=== PATIENT | male | born 1975 | race Caucasian/White ===

== ENCOUNTER 2019-01-23 14:04 | Inpatient (IN) ==
[2019-01-23] MEDS ORDERED: PERCOCET TAB 5/325 MG PO PRN (14:55)
[2019-01-23] MEDS ORDERED: VANCOMYCIN HCL 1 G in D5W 250 ML IV 250 ML IV SCH (15:00)
[2019-01-23] MEDS ORDERED: NS 500 ML IV 500 ML ONE (15:17)
[2019-01-23] MEDS: NICOTINE PATCH TD SCH (15:24)
[2019-01-23 15:25] LABS: BASOPHILS # (AUTO) 0.1 X10^3/uL (0.0-0.1); EOSINOPHILS # (AUTO) 0.5 x10^3/uL (0.0-0.2); EOSINOPHILS % (AUTO) 6.1 % (0.9-2.9); HEMATOCRIT 34.7 % (42.0-54.0); HEMOGLOBIN 10.8 g/dL (13.5-18.0); LYMPHOCYTES # (AUTO) 1.7 X10^3/uL (1.3-2.9); LYMPHOCYTES % (AUTO) 20.5 % (21.0-51.0); MEAN CORPUSCULAR HEMOGLOBIN 21.1 pg (27.0-34.0); MEAN CORPUSCULAR HGB CONC 31.3 g/dL (33.0-35.0); MEAN CORPUSCULAR VOLUME 67.5 fL (80.0-100.0); MEAN PLATELET VOLUME 8.1 fL (7.4-11.0); MONOCYTES # (AUTO) 0.7 x10^3/uL (0.3-0.8); MONOCYTES % (AUTO) 8.5 % (0.0-13.0); NEUTROPHILS # (AUTO) 5.3 x10^3/uL (2.2-4.8); NEUTROPHILS % (AUTO) 63.9 % (42.0-75.0); PLATELET COUNT 307 X10^3/uL (150.0-450.0); RED BLOOD COUNT 5.14 X10^6/uL (4.7-6.0); WHITE BLOOD COUNT 8.2 X10^3/uL (3.6-10.0)
[2019-01-23] MEDS: VANCOMYCIN HCL 1 G in D5W 250 ML IV 250 ML IV SCH ×2 (15:25→22:07)
[2019-01-23 15:36] LABS: ALANINE AMINOTRANSFERASE 20 Units/L (12-78); ALBUMIN 3.8 g/dL (3.4-5.0); ALKALINE PHOSPHATASE 90 Units/L (46-116); ASPARTATE AMINO TRANSFERASE 12 Units/L (15-37); BLOOD UREA NITROGEN 11 mg/dL (7-18); CALCIUM 8.9 mg/dL (8.5-10.1); CARBON DIOXIDE 30.8 mmol/L (21-32); CHLORIDE 94 mmol/L (98-107); CREATININE 1.21 mg/dL (0.70-1.30); SODIUM 133 mmol/L (136-145); TOTAL PROTEIN 7.8 g/dL (6.4-8.2); eGFR NON BLACK RACES > 60 (>60)
[2019-01-23 16:00] LABS: HYPOCHROMASIA 2+; MICROCYTOSIS 1+; PLATELET MORPHOLOGY COMMENT NORMAL (NORMAL)
[2019-01-23 16:20] VITALS: BMI 42.0
--- NOTE | 2019-01-23 16:29 | RAD ---
History: Preop for surgery on hand Study: PA chest Comparison: None Findings: The lungs are grossly clear and the heart and mediastinum are unremarkable. There is no edema or effusion or congestion. No bony abnormality is demonstrated. Impression: No evidence for active cardiopulmonary disease Reported By:
[2019-01-24] MEDS: VANCOMYCIN HCL 1 G in D5W 250 ML IV 250 ML IV SCH ×3 (05:13→21:31)
[2019-01-24 05:26] LABS: BASOPHILS # (AUTO) 0.1 X10^3/uL (0.0-0.1); BASOPHILS % (AUTO) 1.4 % (0.2-1.0); EOSINOPHILS # (AUTO) 0.6 x10^3/uL (0.0-0.2); EOSINOPHILS % (AUTO) 7.8 % (0.9-2.9); HEMATOCRIT 37.3 % (42.0-54.0); HEMOGLOBIN 11.7 g/dL (13.5-18.0); LYMPHOCYTES # (AUTO) 1.6 X10^3/uL (1.3-2.9); MEAN CORPUSCULAR HEMOGLOBIN 21.3 pg (27.0-34.0); MEAN CORPUSCULAR HGB CONC 31.2 g/dL (33.0-35.0); MEAN CORPUSCULAR VOLUME 68.2 fL (80.0-100.0); MONOCYTES # (AUTO) 0.6 x10^3/uL (0.3-0.8); MONOCYTES % (AUTO) 7.5 % (0.0-13.0); NEUTROPHILS % (AUTO) 63.3 % (42.0-75.0); PLATELET COUNT 314 X10^3/uL (150.0-450.0); RED BLOOD COUNT 5.47 X10^6/uL (4.7-6.0); RED CELL DISTRIBUTION WIDTH 19.6 % (11.6-16.5); WHITE BLOOD COUNT 7.8 X10^3/uL (3.6-10.0)
[2019-01-24 05:36] LABS: ALANINE AMINOTRANSFERASE 21 Units/L (12-78); ALBUMIN 3.8 g/dL (3.4-5.0); ALKALINE PHOSPHATASE 94 Units/L (46-116); ASPARTATE AMINO TRANSFERASE 13 Units/L (15-37); BLOOD UREA NITROGEN 10 mg/dL (7-18); CALCIUM 8.7 mg/dL (8.5-10.1); CARBON DIOXIDE 31.4 mmol/L (21-32); CHLORIDE 97 mmol/L (98-107); CREATININE 1.09 mg/dL (0.70-1.30); SODIUM 136 mmol/L (136-145); TOTAL PROTEIN 8.1 g/dL (6.4-8.2); eGFR NON BLACK RACES > 60 (>60)
[2019-01-24 05:55] LABS: PLATELET MORPHOLOGY COMMENT NORMAL (NORMAL)
[2019-01-24 05:56] LABS: HYPOCHROMASIA 2+; MICROCYTOSIS 1+
[2019-01-24] MEDS: NICOTINE PATCH TD SCH (08:50)
[2019-01-24] MEDS ORDERED: LR 1000 ML IV 1,000 ML ONE (12:46)
[2019-01-24] MEDS ORDERED: BACTROBAN TOPICAL OINT ONE (12:47)
[2019-01-24] MEDS ORDERED: PHARMACY COMMENT IV NR (13:30)
[2019-01-24 14:36] LABS: CREATININE 0.99 mg/dL (0.70-1.30); VANCOMYCIN,TROUGH 8.4 ug/mL (15-20)
[2019-01-24] MEDS ORDERED: VERSED ONE (15:26)
[2019-01-24] MEDS ORDERED: DIPRIVAN VIAL ONE (15:26)
[2019-01-24] MEDS ORDERED: XYLOCAINE 2 % (PLAIN) ONE (15:26)
[2019-01-24] MEDS ORDERED: AMBIEN PO PRN (19:50)
[2019-01-25] MEDS: VANCOMYCIN HCL 1 G in D5W 250 ML IV 250 ML IV SCH (05:17)
[2019-01-25 05:32] LABS: BASOPHILS # (AUTO) 0.1 X10^3/uL (0.0-0.1); BASOPHILS % (AUTO) 1.3 % (0.2-1.0); EOSINOPHILS # (AUTO) 0.6 x10^3/uL (0.0-0.2); EOSINOPHILS % (AUTO) 6.8 % (0.9-2.9); HEMATOCRIT 35.5 % (42.0-54.0); HEMOGLOBIN 10.9 g/dL (13.5-18.0); LYMPHOCYTES # (AUTO) 1.6 X10^3/uL (1.3-2.9); LYMPHOCYTES % (AUTO) 18.2 % (21.0-51.0); MEAN CORPUSCULAR HGB CONC 30.8 g/dL (33.0-35.0); MEAN CORPUSCULAR VOLUME 68.4 fL (80.0-100.0); MEAN PLATELET VOLUME 8.9 fL (7.4-11.0); MONOCYTES # (AUTO) 0.9 x10^3/uL (0.3-0.8); MONOCYTES % (AUTO) 9.9 % (0.0-13.0); NEUTROPHILS # (AUTO) 5.6 x10^3/uL (2.2-4.8); NEUTROPHILS % (AUTO) 63.8 % (42.0-75.0); PLATELET COUNT 291 X10^3/uL (150.0-450.0); RED CELL DISTRIBUTION WIDTH 19.5 % (11.6-16.5); WHITE BLOOD COUNT 8.7 X10^3/uL (3.6-10.0)
[2019-01-25 05:42] LABS: ALANINE AMINOTRANSFERASE 20 Units/L (12-78); ALBUMIN 3.6 g/dL (3.4-5.0); ALKALINE PHOSPHATASE 87 Units/L (46-116); ASPARTATE AMINO TRANSFERASE 12 Units/L (15-37); BLOOD UREA NITROGEN 12 mg/dL (7-18); CALCIUM 8.8 mg/dL (8.5-10.1); CARBON DIOXIDE 31.4 mmol/L (21-32); CHLORIDE 97 mmol/L (98-107); CREATININE 0.95 mg/dL (0.70-1.30); SODIUM 136 mmol/L (136-145); TOTAL PROTEIN 7.4 g/dL (6.4-8.2); eGFR NON BLACK RACES > 60 (>60)
[2019-01-25 06:11] LABS: HYPOCHROMASIA 2+; MICROCYTOSIS 1+; PLATELET MORPHOLOGY COMMENT NORMAL (NORMAL)
[2019-01-25 09:35] VITALS: BP 136/82
[2019-01-25] MEDS ORDERED: PHARMACY CONSULT - DOSE _____ XX SCH (11:00)
[2019-01-25] MEDS: NICOTINE PATCH TD SCH (11:34)
== END 2019-01-25 11:50 | disposition home or self-care (01) | DRG 983 ==
LOC: MED/SURG 14:26
PROVIDERS: ADMIT Surgery; ATTEND Surgery
DX: B95.62 Methicillin resistant Staphylococcus aureus infection as the cause of diseases classified elsewhere; L03.012 Cellulitis of left finger; L02.512 Cutaneous abscess of left hand
CPT/HCPCS: 36415; 71010; 71045; 80053; 80202; 82565; 85025; 93005; A4222; J2250; J2704; J3370; J3490; J7040; J7060; J7120

== ENCOUNTER 2023-08-09 15:36 | Inpatient (IN) ==
--- NOTE | 2023-08-09 16:53 | EKG ---
Test Reason : syncopal episode Blood Pressure : */* mmHG Vent. Rate : 81 BPM Atrial Rate : 81 BPM P-R Int : 148 ms QRS Dur : 110 ms QT Int : 388 ms P-R-T Axes : 66 19 80 degrees QTc Int : 450 ms Normal sinus rhythm Normal ECG No previous ECGs available Confirmed by Joe Harmon MD ([id number]) on 08/10/2023 6:34:57 AM Referred By: Confirmed By: Joe Harmon MD
--- NOTE | 2023-08-09 17:00 | DR.DIZZY ---
HPI Time seen Time Seen by Provider: 08/09/23 17:00 PCP Primary Care Physician: ZARI MAHAJAN Complaint Chief Complaint Doctor Comments: 48-year-old male presents for evaluation. Patient has been having recurrent episodes of syncope & near syncope over the past 2 weeks. Denies recent illness prior to onset of episodes. Patient states fine at rest. When he stands and tries to ambulate at times he becomes very lightheaded and almost passes out. He has fallen down several times, bruising in his arms. He denies any recent head injury, cervical trauma. States he has been running some fevers. Has chronic sinus congestion, no changes. Denies h eadache, double vision. Vision gets blurry with the episodes. No sore throat, difficulty in swallowing. Has chronic neck/back discomfort, history of disc disease. Reportedly had an MRI 3 days ago at another facility, was told he has degree of spinal stenosis. Denies any chest pain. Has an occasional cough, nonproductive. No shortness of breath. Denies nausea, vomiting diarrhea. No bowel or bladder issues. He is having weakness and numbness of both upper extremities. Denies incontinence of stool or bowel. Trying to quit smoking, down to 1 pack every 2 days. Denies alcohol or drug use. Patient has been told his speech has been off a bit, pt hasn't noticed. Chief Complaint:: PT STATES HE CONTS TO "BLACK OUT" AND NOW HIS HANDS AND ARMS ARE GOING NUMB. STATES HE IS ALSO GETTING NAUSEATED AND HE IS UNABLE TO DRIVE. HE HAS AN APPT TO SEE A NEUROLOGIST IN [place] BUT THAT IS A FEW WEEKS AWAY. COVID-19 Coronavirus risk:travel/contact w/high risk person: No Has patient experienced Coronavirus symptoms: No Nurses Notes Reviewed Nurses Notes Review: Yes Source History Provided: Patient Mode of Arrival Mode of Arrival: Ambulatory Timing Onset of Chief Complaint: 06/28/23 Context Stroke Symptoms: None PMH PMH Past Medical History: Yes Past Medical History: Dyslipidemia and Hypertension Past Surgical History: Yes Surgical History: Ortho Surgery and Other Family History History of Family Medical Conditions: Yes Family Medical History: Diabetes Mellitus, Cancer and Hypertension Social History Type of Tobacco Use: Cigarettes Does any household member use tobacco: Yes Alcohol Use: Occasionally Do you use any recreational Drugs:: No Lives With: Family Lives Where: Home Travel Risk Coronavirus risk:travel/contact w/high risk person: No Has patient experienced Coronavirus symptoms: No Infectious screening In the last 2 months have you had wt loss of >10#?: NO Have you had fever, night sweats or hemotysis?: No Have you traveled outside the country in the last 6 months?: No Isolation: Standard ROS Review of Systems Constitutional: Weakness Eyes: No Symptoms Reported ENTM: No Symptoms Reported Respiratoy: No Symptoms Reported Cardiovascular: Syncope Gastrointestinal/Abdominal: No Symptoms Reported Genitourinary: No Symptoms Reported Neurological: Numbness, Paresthesia and Weakness Musculoskeletal: No Symptoms Reported Integumentary: No Symptoms Reported Hematologic/Lymphatic: No Symptoms Reported Psychiatric: No Symptoms Reported All Other Systems: Reviewed and Negative PE Vital Signs Vitals: Vital Signs Temperature 98.2 F Pulse Rate [Standing] 88 Pulse Rate [Sitting] 92 Pulse Rate [Lying] 90 Pulse Rate 100 Pulse Rate 89 Pulse Rate 83 Pulse Rate 89 Pulse Rate 90 Pulse Rate 84 Pulse Rate 82 Pulse Rate 85 Pulse Rate 82 Pulse Rate 83 Pulse Rate 90 Pulse Rate 84 Pulse Rate 86 Pulse Rate 81 Pulse Rate 92 Respiratory Rate 34 Respiratory Rate 35 Respiratory Rate 31 Respiratory Rate 28 Respiratory Rate 25 Respiratory Rate 26 Respiratory Rate 28 Respiratory Rate 25 Respiratory Rate 26 Respiratory Rate 25 Respiratory Rate 29 Respiratory Rate 23 Respiratory Rate 29 Respiratory Rate 27 Respiratory Rate 20 Blood Pressure [Standing] 164/93 Blood Pressure [Sitting] 171/101 Blood Pressure [Lying] 175/101 Blood Pressure 142/88 Blood Pressure 168/86 Blood Pressure 164/93 Blood Pressure 171/101 Blood Pressure 175/101 Blood Pressure 180/108 Blood Pressure 155/97 Blood Pressure 147/93 Blood Pressure 145/81 O2 Sat by Pulse Oximetry 94 O2 Sat by Pulse Oximetry 97 O2 Sat by Pulse Oximetry 96 O2 Sat by Pulse Oximetry 96 O2 Sat by Pulse Oximetry 93 O2 Sat by Pulse Oximetry 89 O2 Sat by Pulse Oximetry 89 O2 Sat by Pulse Oximetry 96 O2 Sat by Pulse Oximetry 96 O2 Sat by Pulse Oximetry 97 O2 Sat by Pulse Oximetry 95 O2 Sat by Pulse Oximetry 96 O2 Sat by Pulse Oximetry 92 O2 Sat by Pulse Oximetry 97 General General Appearance: Alert and In No Apparent Distress Head Head Exam: Normal Inspection, Atraumatic and Normocephalic Eyes Eye exam: PERRL and EOMI ENT ENT Exam: Normal Oropharynx, Mucous Membranes Moist and TM's Normal Bilaterally Neck Neck Exam: Normal Inspection and Full ROM; negative Tenderness or Meningismus Chest Chest Inspection: Normal Inspection Respiratory Respiratory Exam: Normal Lung Sounds Bilat; negative Accessory Muscle Use or Respiratory Distress Cardiovascular Cardiovascular Exam: Regular Rate, Normal Rhythm and Normal Heart Sounds Abdominal Exam Abdominal Exam: Normal Bowel Sounds and Soft; negative Tenderness Extremeties Extremities Exam: Normal Inspection; negative Edema Back Back Exam: Normal Inspection; negative Tenderness Neurologic Neurological Exam: Alert, Oriented X3, CN II-XII Intact and Other (Difficulty raising both arms to chest level, with weakness. Cranial nerves intact. No lower extremity weakness.) Skin Skin Exam: Warm and Dry COURSE Treatment Treatment: 48-year-old male with 2 weeks of recurrent near syncopal episodes, having weakness and numbness of bilateral upper extremities. Workup initiated. EKG obtained, is normal.W/u unremarkable for acute abnormalities. Normal cardiac rhythm on monitor. Orthostatics obtained, no change in BP with ambulation, patient wobbly but not syncopal. Offered transfer to facility with higher level of care. Pt more somnolent, falling asleep quickly. ABG obtained, + elevated pCO2. Will place pt on trial of Bipap to see if improves symptoms. Patient has appointment with neurosurgeon in [place] in the near future. Patient declines transfer out of town, will admit overnight to observe cardiac rhythm, follow vitals. Discussed with Dr. Moulton, accepts observation admission. ROR Labs Reviewed Laboratory Results Reviewed?: Yes 08/10/23 04:11 08/10/23 04:11 Laboratory: WBC 6.8 X10^3/uL (3.6-10.0) 08/09/23 16:45 RBC 5.28 X10^6/uL (4.7-6.0) 08/09/23 16:45 Hgb 13.3 g/dL (13.5-18.0) L 08/09/23 16:45 Hct 41.9 % (42.0-54.0) L 08/09/23 16:45 MCV 79.2 fL (80.0-100.0) L 08/09/23 16:45 MCH 25.1 pg (27.0-34.0) L 08/09/23 16:45 MCHC 31.7 g/dL (33.0-35.0) L 08/09/23 16:45 RDW 16.4 % (11.6-16.5) 08/09/23 16:45 Plt Count 221 X10^3/uL (150.0-450.0) 08/09/23 16:45 MPV 9.1 fL (7.4-11.0) 08/09/23 16:45 Neut % (Auto) 60.1 % (42.0-75.0) 08/09/23 16:45 Lymph % (Auto) 23.9 % (21.0-51.0) 08/09/23 16:45 [place] % (Auto) 9.7 % (0.0-13.0) 08/09/23 16:45 Eos % (Auto) 5.2 % (0.9-2.9) H 08/09/23 16:45 Baso % (Auto) 1.1 % (0.2-1.0) H 08/09/23 16:45 Neut # (Auto) 4.1 x10^3/uL (2.2-4.8) 08/09/23 16:45 Lymph # (Auto) 1.6 X10^3/uL (1.3-2.9) 08/09/23 16:45 [place] # (Auto) 0.7 x10^3/uL (0.3-0.8) 08/09/23 16:45 Eos # (Auto) 0.4 x10^3/uL (0.0-0.2) H 08/09/23 16:45 Baso # (Auto) 0.1 X10^3/uL (0.0-0.1) 08/09/23 16:45 Absolute Nucleated RBC 0.2 /100WBC 08/09/23 16:45 ESR 24 MM/HOUR (0-15) H 08/09/23 16:45 Sample Site Rrad 08/09/23 18:32 ABG pH 7.410 (7.35-7.45) 08/09/23 18:32 ABG pCO2 59.0 mmHg (35.0-45.0) H* 08/09/23 18:32 ABG pO2 59.0 mmHg (80.0-100.0) L 08/09/23 18:32 ABG HCO3 37.4 mmol/L (22-26) H* 08/09/23 18:32 ABG O2 Saturation 90.0 % (90-100) 08/09/23 18:32 ABG Base Excess 10.6 mmol/L (-2.0-2.0) H 08/09/23 18:32 Hector Test Pos 08/09/23 18:32 A-a Gradient 17.0 mmHg 08/09/23 18:32 FiO2 21.0 08/09/23 18:32 Blood Gas Comments Pt elodia well elj cdn 08/09/23 18:32 Sodium 138 mmol/L (136-145) 08/09/23 16:45 Corrected Sodium TNP 08/09/23 16:45 Potassium 3.2 mmol/L (3.5-5.1) L 08/09/23 16:45 Chloride 98 mmol/L (98-107) 08/09/23 16:45 Carbon Dioxide 34.8 mmol/L (21-32) H 08/09/23 16:45 BUN 14 mg/dL (7-18) 08/09/23 16:45 Creatinine 0.83 mg/dL (0.70-1.30) 08/09/23 16:45 Est GFR (MDRD) Af Amer > 60 (>60) 08/09/23 16:45 Est GFR (MDRD) Non-Af > 60 (>60) 08/09/23 16:45 Glucose 100 mg/dL (65-99) H 08/09/23 16:45 Calcium 8.5 mg/dL (8.5-10.1) 08/09/23 16:45 Corrected Calcium 9.3 mg/dL (8.5-10.1) 08/09/23 16:45 Magnesium 1.8 mg/dL (2.0-2.9) L 08/09/23 16:45 Total Bilirubin 0.30 mg/dL (0.2-1.0) 08/09/23 16:45 AST 41 Units/L (15-37) H 08/09/23 16:45 ALT 59 Units/L (12-78) 08/09/23 16:45 Alkaline Phosphatase 77 Units/L (46-116) 08/09/23 16:45 Creatine Kinase 418 Units/L (39-308) H 08/09/23 16:45 Troponin I High Sens 6.5 ng/L (4.0-60.0) 08/09/23 16:45 C-Reactive Protein 3.40 mg/L (0-3.0) H 08/09/23 16:45 Total Protein 6.6 g/dL (6.4-8.2) 08/09/23 16:45 Albumin 3.0 g/dL (3.4-5.0) L 08/09/23 16:45 Globulin 3.6 g/dL (2.5-4.5) 08/09/23 16:45 Albumin/Globulin Ratio 0.8 Ratio (1.1-2.1) L 08/09/23 16:45 TSH 3rd Generation 0.759 uIU/mL (0.358-3.74) 08/09/23 16:45 Specimen Type Clean catch urine 08/09/23 19:21 Urine Color Yellow (YELLOW) 08/09/23 19: Urine Appearance Clear (CLEAR) 08/09/23 19: Urine pH 7.0 (5.0 - 8.0) 08/09/23 19: Ur Specific [place] 1.015 (1.000-1.030) 08/09/23 19: Urine Protein 2+ (NEGATIVE) 08/09/23 19: Urine Glucose (UA) Negative (NEGATIVE) 08/09/23: Urine Ketones Negative (NEGATIVE) 08/09/23 19: Urine Blood Negative (NEGATIVE) 08/09/23 19: Urine Nitrite Negative (NEGATIVE) 08/09/23: Urine Bilirubin Negative (NEGATIVE) 08/09/23: Urine Urobilinogen Normal (NORMAL) 08/09/23: Ur Leukocyte Esterase Negative (NEGATIVE) 08/09/23 19: Urine RBC None seen /HPF (0-3) 08/09/23 19: Urine WBC None seen /HPF (0-5) 08/09/23 19: Ur Squamous Epith Cells Rare /HPF (NEGATIVE) 08/09/23 19: Urine Bacteria Negative /HPF (NEGATIVE) 08/09/23 19: Ur Culture Indicated? No/not indicated 08/09/23 19: Urine Opiates Screen Negative (NEG=<300) 08/09/23 19: Urine Methadone Screen Negative (NEG=<300) 08/09/23 19:21 Ur Barbiturates Screen Negative (NEG=<200) 08/09/23 19:21 Ur Phencyclidine Scrn Negative (NEG=<25) 08/09/23 19: Ur Amphetamines Screen Positive (NEG=<1000) 08/09/23 19:21 U Benzodiazepines Scrn Negative (NEG=<200) 08/09/23 19:21 Urine Cocaine Screen Negative (NEG=<300) 08/09/23 19: U Marijuana (THC) Screen Negative (NEG=<50) 08/09/23 19:21 EKG Rate: 81 [place]: Normal Rhythm: NSR Block: None ST: Normal Opioid Opioid Risk Tool Age (Marko box if 16-45): No History of Preadolescent Sexual Abuse: No Psychological Disease: Depression Total: 0 Total Score Risk Category: Low Risk Copyright: Tuan PRECIADO predicting aberrant behaviors Discharge Plan Diagnosis Discharge Problem: Recurrent syncope, Bilateral arm weakness Discharge Plan Patient Disposition: ADMITTED INPATIENT Condition: Stable
[2023-08-09] MEDS ORDERED: NS 1,000 ML IV 1,000 ML ONE (17:24)
[2023-08-09] MEDS: NS 1,000 ML IV 1,000 ML IV ONE (17:28)
[2023-08-09 17:30] LABS: BASOPHILS # (AUTO) 0.1 X10^3/uL (0.0-0.1); BASOPHILS % (AUTO) 1.1 % (0.2-1.0); EOSINOPHILS # (AUTO) 0.4 x10^3/uL (0.0-0.2); EOSINOPHILS % (AUTO) 5.2 % (0.9-2.9); HEMATOCRIT 41.9 % (42.0-54.0); HEMOGLOBIN 13.3 g/dL (13.5-18.0); LYMPHOCYTES # (AUTO) 1.6 X10^3/uL (1.3-2.9); LYMPHOCYTES % (AUTO) 23.9 % (21.0-51.0); MEAN CORPUSCULAR HEMOGLOBIN 25.1 pg (27.0-34.0); MEAN CORPUSCULAR HGB CONC 31.7 g/dL (33.0-35.0); MEAN CORPUSCULAR VOLUME 79.2 fL (80.0-100.0); MEAN PLATELET VOLUME 9.1 fL (7.4-11.0); MONOCYTES # (AUTO) 0.7 x10^3/uL (0.3-0.8); MONOCYTES % (AUTO) 9.7 % (0.0-13.0); NEUTROPHILS # (AUTO) 4.1 x10^3/uL (2.2-4.8); NEUTROPHILS % (AUTO) 60.1 % (42.0-75.0); PLATELET COUNT 221 X10^3/uL (150.0-450.0); RED BLOOD COUNT 5.28 X10^6/uL (4.7-6.0); RED CELL DISTRIBUTION WIDTH 16.4 % (11.6-16.5); WHITE BLOOD COUNT 6.8 X10^3/uL (3.6-10.0)
[2023-08-09 17:42] LABS: ERYTHROCYTE SEDIMENTATION RATE 24 MM/HOUR (0-15)
[2023-08-09 17:43] LABS: ALANINE AMINOTRANSFERASE 59 Units/L (12-78); ALKALINE PHOSPHATASE 77 Units/L (46-116); ASPARTATE AMINO TRANSFERASE 41 Units/L (15-37); BLOOD UREA NITROGEN 14 mg/dL (7-18); CALCIUM 8.5 mg/dL (8.5-10.1); CARBON DIOXIDE 34.8 mmol/L (21-32); CHLORIDE 98 mmol/L (98-107); COR CA(FOR HYPOALB) 9.3 mg/dL (8.5-10.1); CREATINE KINASE 418 Units/L (39-308); CREATININE 0.83 mg/dL (0.70-1.30); GLUCOSE 100 mg/dL (65-99); POTASSIUM 3.2 mmol/L (3.5-5.1); SODIUM 138 mmol/L (136-145); TOTAL PROTEIN 6.6 g/dL (6.4-8.2); TSH (3RD GENERATION) 0.759 uIU/mL (0.358-3.74); eGFR NON BLACK RACES > 60 (>60)
--- NOTE | 2023-08-09 18:29 | RAD ---
EXAM:CHEST, 1 VIEWHISTORY:CONTS TO "BLACK OUT", NOW HIS HANDS/ARMS ARE GOING NUMB. GETTING NAUSEATED AND HE IS UNABLE TO DRIVE. NEUROLOGIST APPT IN [place] BUT THAT IS A FEW WEEKS AWAY.;COMPARISON:None.FINDINGS:Cardiomeg sari. Elevated left hemidiaphragm. Lungs grossly clear. No visible pneumothorax or sizable pleural effusion or acute osseous finding.IMPRESSION:Probable cardiomegaly. Elevated left hemidiaphragm.THIS IS AN ELECTRONICALLY VERIFIED FINAL REPORT08/09/2023 6:26 PM - Electronically signed by Henry Good MD
[2023-08-09] MEDS: ZOFRAN INJ 4 MG VIAL IVP ONE (18:32)
[2023-08-09 18:35] LABS: ABG BASE EXCESS 10.6 mmol/L (-2.0-2.0)
[2023-08-09 18:36] LABS: ABG HCO3 37.4 mmol/L (22-26)
[2023-08-09 18:37] LABS: ABG ALLEN TEST POS
[2023-08-09] MEDS: ZOFRAN INJ 4 MG VIAL ONE (18:47)
[2023-08-09 19:26] LABS: BILIRUBIN,URINE NEGATIVE (NEGATIVE); BLOOD/HEMOGLOBIN,URINE NEGATIVE (NEGATIVE); GLUCOSE, URINE NEGATIVE (NEGATIVE); KETONES,URINE NEGATIVE (NEGATIVE); LEUKOCYTE ESTERASE ,URINE NEGATIVE (NEGATIVE); NITRITES,URINE NEGATIVE (NEGATIVE); PROTEIN,URINE 2+ (NEGATIVE); UROBILINOGEN,URINE NORMAL (NORMAL)
[2023-08-09 19:37] LABS: APPEARANCE,URINE CLEAR (CLEAR); BACTERIA,URINE NEGATIVE /HPF (NEGATIVE); COLOR,URINE YELLOW (YELLOW); RBC,URINE NONE SEEN /HPF (0-3); SQUAMOUS EPITHELIAL CELL,UR RARE /HPF (NEGATIVE)
[2023-08-09] MEDS ORDERED: CONSULT PHARMACY - POTASSIUM & MAGNESIUM XX SCH (21:00)
[2023-08-09 22:03] VITALS: BMI 38.2
[2023-08-09] MEDS: NICOTINE PATCH TD SCH (22:07)
[2023-08-10] MEDS: K-DUR TAB 20 MEQ PO SCH ×2 (00:06→08:11)
[2023-08-10] MEDS: MAGNESIUM SULFATE 1 GRAM/100 mL PREMIX 1 G/100 ML BAG IV SCH (02:59)
[2023-08-10 04:45] LABS: BASOPHILS # (AUTO) 0.1 X10^3/uL (0.0-0.1); EOSINOPHILS # (AUTO) 0.3 x10^3/uL (0.0-0.2); WHITE BLOOD COUNT 5.3 X10^3/uL (3.6-10.0)
[2023-08-10 04:51] LABS: EOSINOPHILS % (AUTO) 6.4 % (0.9-2.9); HEMATOCRIT 43.3 % (42.0-54.0); HEMOGLOBIN 13.5 g/dL (13.5-18.0); LYMPHOCYTES # (AUTO) 1.2 X10^3/uL (1.3-2.9); LYMPHOCYTES % (AUTO) 21.8 % (21.0-51.0); MEAN CORPUSCULAR HEMOGLOBIN 24.9 pg (27.0-34.0); MEAN CORPUSCULAR HGB CONC 31.2 g/dL (33.0-35.0); MEAN CORPUSCULAR VOLUME 79.9 fL (80.0-100.0); MEAN PLATELET VOLUME 9.1 fL (7.4-11.0); MONOCYTES # (AUTO) 0.6 x10^3/uL (0.3-0.8); MONOCYTES % (AUTO) 10.7 % (0.0-13.0); NEUTROPHILS # (AUTO) 3.2 x10^3/uL (2.2-4.8); NEUTROPHILS % (AUTO) 60.1 % (42.0-75.0); PLATELET COUNT 218 X10^3/uL (150.0-450.0); RED BLOOD COUNT 5.42 X10^6/uL (4.7-6.0); RED CELL DISTRIBUTION WIDTH 16.1 % (11.6-16.5)
[2023-08-10 05:02] LABS: ALANINE AMINOTRANSFERASE 58 Units/L (12-78); ALBUMIN 2.9 g/dL (3.4-5.0); ALKALINE PHOSPHATASE 77 Units/L (46-116); ASPARTATE AMINO TRANSFERASE 37 Units/L (15-37); BLOOD UREA NITROGEN 12 mg/dL (7-18); CALCIUM 8.7 mg/dL (8.5-10.1); CARBON DIOXIDE 37.3 mmol/L (21-32); CHLORIDE 100 mmol/L (98-107); COR CA(FOR HYPOALB) 9.6 mg/dL (8.5-10.1); CREATINE KINASE 241 Units/L (39-308); CREATININE 0.83 mg/dL (0.70-1.30); GLUCOSE 96 mg/dL (65-99); SODIUM 141 mmol/L (136-145); TOTAL PROTEIN 6.5 g/dL (6.4-8.2); eGFR NON BLACK RACES > 60 (>60)
[2023-08-10] MEDS ORDERED: CONSULT PHARMACY - POTASSIUM & MAGNESIUM XX SCH (06:00)
[2023-08-10] MEDS: HYDROCHLOROTHIAZIDE 25 MG TAB PO SCH (09:09)
[2023-08-10] MEDS: COZAAR PO SCH (09:09)
[2023-08-10] MEDS: ATIVAN INJ 2 MG VIAL IVP ONE (09:28)
--- NOTE | 2023-08-10 10:32 | MRI ---
EXAM:BRAIN W/O CONHISTORY:R/O MS-EXTREMITY WEAKNESS PT HAS SEVERE CLAUSTROPHOBIA, PT GAVE MEDS FOR ANXIETY AND COULD NOT STAY AWAKE, HEAVY SNORING AND BREATHING CAUSED MOTION ON IMAGES, SEVERAL REPEATS ;COMPARISON:NoneTECHNIQUE:Multiplanar multisequence MRI of the brain was obtained without contrast using standard departmental protocol.FINDINGS:Motion artifact degrades many of the images.Diffusion sequences show no abnormal signal. No evidence for acute ischemia.Minimal age-related findings include central and cortical atrophy with abnormal signal in the periventricular white matter, most likely the micro-ischemic changes of aging. Remaining byrne and white matter have normal differentiation.There is no obvious focal area of demyelination or plaque that might suggest multiple sclerosis. My ability to detect small lesions is significantly reduced due to the amount of motion artifact.There is no mass, shift, or hemorrhage. Cerebellar tonsils are at an appropriate level.Probable normal signal flow void in the central vessels. There is no obvious abnormal signal on susceptibility sequences.Mucosal thickening is seen in the maxillary sinuses and ethmoid air cells most likely from chronic sinusitis. No mastoid effusion.Small benign-appearing bone lesion noted in the left frontal bone. This measures 12 mm this has low T1 and high T2 signal and may be a cyst.IMPRESSION:1. Mild age-related changes2. No acute infarct or hemorrhage3. Chronic sinusitis4. No evidence for significant demyelinationTHIS IS AN ELECTRONICALLY VERIFIED FINAL REPORT08/10/2023 10:28 AM - Electronically signed by Dawit Coyle MD
--- NOTE | 2023-08-10 11:54 | VAS ---
EXAM:Duplex CAROTID USHISTORY:SyncopeCOMPARISON:None. br.br.br right and left carotid arterial system were obtained with waveform analysis using NASCET criteria. The vertebral arterial system was evaluated as well.FINDINGS:Two dimensional ultrasound reveals minimal plaque in the regions of the carotid bifurcations and mild intimal thickening. The right and left vertebral arteries demonstrate antegrade flow.Right ICA peak systolic velocity is 59 cm/sec. Right systolic ratio is 0.8.Left ICA peak systolic velocity is 76 cm/sec. Left systolic ratio is 0.7.IMPRESSION:No hemodynamically significant stenosis is seen in the regions of the carotid bifurcations.THIS IS AN ELECTRONICALLY VERIFIED FINAL REPORT08/10/2023 11:51 AM - Electronically signed by Tito Victoria MD
--- NOTE | 2023-08-10 13:34 | DR.H&P ---
H&P History & Physical for Day of: H&P Date: 08/10/23 Chief Complaint Chief Complaint: syncopal episodes, b/l upper extremity weakness Allergies Allergies Allergy/AdvReac Type Severity Reaction Status Date / Time No Known Drug Allergies Allergy Verified 08/17/18 18:36 History of Present Illness History of Present Illness: Mr Buck is a 48y/o male with a PMH of JOVANNY, non- compliant with CPAP, HTN, chronic neck/back pain and tobacco user presented with near syncope episodes, dizziness and b/l arm weakness. He states his symptoms have been ongoing for 3 weeks or so. He did see his PCP and had cervical MRI done 3 days ago which showed cervical stenosis. He is supposed to see Neurology in [place]. He reports worsening arm weakness, numbness and tingling. He denies any trauma or fall that could have injured his neck. He states he is not able to use his hands due to numbness. He reports having chronic pain for years but noticed it getting worse. He states his posture was always stooped over but has gotten worse recently. Denies any urine or bowel incontinence. Denies any leg weakness. He feels dizzy when standing up but gets better as he starts walking. He reports having sinus congestion and pressure. He does feel better this morning. In the ER, patient did not have any dizzy spells or syncopal episodes. CXR showed cardiomegaly. UA was negative, UDS showed amphetamines, patient does take Adderall. Trop (-) Total CK 418 CRP 3.4 ESR 24 K 3.0. ABG did show hypoxia and hypercapnia. Patient was noted to be somnolent overnight and was placed on BiPAP. He is currently on room air. He also has some LE edema which has been present for the past few weeks. Patient was admitted for further management for syncope. Labs/imaging reviewed Plan: Admit patient to ICU for closer monitoring. Neuro checks. MRI-brain and CT-sinus pending. Will order echo and carotid US. Replace electrolytes prn. Repeat orthostatic vitals. Continue telemetry. Resume home medications. BiPAP prn. Will need to obtain records of recent cervical MRI. Monitor AM labs/imagi ng. Time spent for clinical assessment, reviewing labs/imaging, physical exam, decision making and documentation greater than 45 mins. Past Medical History Past Medical History: Dyslipidemia and Hypertension Past Surgical History Surgical History: Ortho Surgery Family History Family Medical History: Diabetes Mellitus, Cancer and Hypertension Social History Does patient currently use any type of tobacco product: Yes Have you used tobacco products in the last 12 months: Yes Type of Tobacco Use: Cigarettes How many years tobacco product used: 10 Does any household member use tobacco: No Alcohol Use: None Drug Use: Prescription Drugs Medications Home Medications: Home Medications Medication Instructions Recorded Confirmed Type dextroamphetamine-amphetamine 20 20 mg PO BID 08/09/23 08/09/23 History mg tablet testosterone cypionate 200 mg/mL 200 mg IM MONTHLY 08/09/23 08/09/23 History intramuscular oil hydrochlorothiazide 25 mg tablet 25 mg PO DAILY 08/10/23 08/10/23 History losartan 100 mg tablet 100 mg PO DAILY 08/10/23 08/10/23 History Labs 08/10/23 04:11 08/10/23 04:11 Labs: Laboratory WBC 5.3 X10^3/uL (3.6-10.0) 08/10/23 04:11 RBC 5.42 X10^6/uL (4.7-6.0) 08/10/23 04:11 Hgb 13.5 g/dL (13.5-18.0) 08/10/23 04:11 Hct 43.3 % (42.0-54.0) 08/10/23 04:11 MCV 79.9 fL (80.0-100.0) L 08/10/23 04:11 MCH 24.9 pg (27.0-34.0) L 08/10/23 04:11 MCHC 31.2 g/dL (33.0-35.0) L 08/10/23 04:11 RDW 16.1 % (11.6-16.5) 08/10/23 04:11 Plt Count 218 X10^3/uL (150.0-450.0) 08/10/23 04:11 MPV 9.1 fL (7.4-11.0) 08/10/23 04:11 Neut % (Auto) 60.1 % (42.0-75.0) 08/10/23 04:11 Lymph % (Auto) 21.8 % (21.0-51.0) 08/10/23 04:11 [place] % (Auto) 10.7 % (0.0-13.0) 08/10/23 04:11 Eos % (Auto) 6.4 % (0.9-2.9) H 08/10/23 04:11 Baso % (Auto) 1.0 % (0.2-1.0) 08/10/23 04:11 Neut # (Auto) 3.2 x10^3/uL (2.2-4.8) 08/10/23 04:11 Lymph # (Auto) 1.2 X10^3/uL (1.3-2.9) L 08/10/23 04:11 [place] # (Auto) 0.6 x10^3/uL (0.3-0.8) 08/10/23 04:11 Eos # (Auto) 0.3 x10^3/uL (0.0-0.2) H 08/10/23 04:11 Baso # (Auto) 0.1 X10^3/uL (0.0-0.1) 08/10/23 04:11 Absolute Nucleated RBC 0.2 /100WBC 08/10/23 04:11 ESR 24 MM/HOUR (0-15) H 08/09/23 16:45 Sample Site Rrad 08/09/23 18:32 ABG pH 7.410 (7.35-7.45) 08/09/23 18:32 ABG pCO2 59.0 mmHg (35.0-45.0) H* 08/09/23 18:32 ABG pO2 59.0 mmHg (80.0-100.0) L 08/09/23 18:32 ABG HCO3 37.4 mmol/L (22-26) H* 08/09/23 18:32 ABG O2 Saturation 90.0 % (90-100) 08/09/23 18:32 ABG Base Excess 10.6 mmol/L (-2.0-2.0) H 08/09/23 18:32 Hector Test Pos 08/09/23 18:32 A-a Gradient 17.0 mmHg 08/09/23 18:32 FiO2 21.0 08/09/23 18:32 Blood Gas Comments Pt elodia well elj cdn 08/09/23 18:32 Sodium 141 mmol/L (136-145) 08/10/23 04:11 Corrected Sodium TNP 08/10/23 04:11 Potassium 3.0 mmol/L (3.5-5.1) L 08/10/23 04:11 Chloride 100 mmol/L (98-107) 08/10/23 04:11 Carbon Dioxide 37.3 mmol/L (21-32) H 08/10/23 04:11 BUN 12 mg/dL (7-18) 08/10/23 04:11 Creatinine 0.83 mg/dL (0.70-1.30) 08/10/23 04:11 Est GFR (MDRD) Af Amer > 60 (>60) 08/10/23 04:11 Est GFR (MDRD) Non-Af > 60 (>60) 08/10/23 04:11 Glucose 96 mg/dL (65-99) 08/10/23 04:11 Calcium 8.7 mg/dL (8.5-10.1) 08/10/23 04:11 Corrected Calcium 9.6 mg/dL (8.5-10.1) 08/10/23 04:11 Magnesium 2.3 mg/dL (2.0-2.9) 08/10/23 04:11 Ferritin 16 ng/mL (26-388) L 08/10/23 08:58 Total Bilirubin 0.40 mg/dL (0.2-1.0) 08/10/23 04:11 AST 37 Units/L (15-37) 08/10/23 04:11 ALT 58 Units/L (12-78) 08/10/23 04:11 Alkaline Phosphatase 77 Units/L (46-116) 08/10/23 04:11 Creatine Kinase 241 Units/L (39-308) 08/10/23 04:11 Troponin I High Sens 6.5 ng/L (4.0-60.0) 08/09/23 16:45 C-Reactive Protein 3.40 mg/L (0-3.0) H 08/09/23 16:45 Total Protein 6.5 g/dL (6.4-8.2) 08/10/23 04:11 Albumin 2.9 g/dL (3.4-5.0) L 08/10/23 04:11 Globulin 3.6 g/dL (2.5-4.5) 08/10/23 04:11 Albumin/Globulin Ratio 0.8 Ratio (1.1-2.1) L 08/10/23 04:11 TSH 3rd Generation 0.759 uIU/mL (0.358-3.74) 08/09/23 16:45 Specimen Type Clean catch urine 08/09/23 19: Urine Color Yellow (YELLOW) 08/09/23 19: Urine Appearance Clear (CLEAR) 08/09/23 19: Urine pH 7.0 (5.0 - 8.0) 08/09/23 19: Ur Specific [place] 1.015 (1.000-1.030) 08/09/23 19: Urine Protein 2+ (NEGATIVE) 08/09/23 19: Urine Glucose (UA) Negative (NEGATIVE) 08/09/23 19: Urine Ketones Negative (NEGATIVE) 08/09/23 19: Urine Blood Negative (NEGATIVE) 08/09/23 19: Urine Nitrite Negative (NEGATIVE) 08/09/23: Urine Bilirubin Negative (NEGATIVE) 08/09/23 19: Urine Urobilinogen Normal (NORMAL) 08/09/23 19: Ur Leukocyte Esterase Negative (NEGATIVE) 08/09/23 19: Urine RBC None seen /HPF (0-3) 08/09/23 19: Urine WBC None seen /HPF (0-5) 08/09/23 19: Ur Squamous Epith Cells Rare /HPF (NEGATIVE) 08/09/23 19: Urine Bacteria Negative /HPF (NEGATIVE) 08/09/23 19: Ur Culture Indicated? No/not indicated 08/09/23 19: Urine Opiates Screen Negative (NEG=<300) 08/09/23 19: Urine Methadone Screen Negative (NEG=<300) 08/09/23 19: Ur Barbiturates Screen Negative (NEG=<200) 08/09/23: Ur Phencyclidine Scrn Negative (NEG=<25) 08/09/23 19: Ur Amphetamines Screen Positive (NEG=<1000) 08/09/23: U Benzodiazepines Scrn Negative (NEG=<200) 08/09/23: Urine Cocaine Screen Negative (NEG=<300) 08/09/23: U Marijuana (THC) Screen Negative (NEG=<50) 08/09/23 19:21 Review of Systems Constitutional: Weakness Eyes: No Symptoms Reported ENT: Nose Congestion Respiratory: Shortness of Breath Cardiovascular: Edema Gastrointestinal: No Symptoms Reported Genitourinary: No Symptoms Reported Musculoskeletal: Hand Pain and Neck Pain Skin: No Symptoms Reported Neurological: Weakness Physical Exam Vital Signs: Vital Signs Temperature 97.8 F Temperature 97.7 F Pulse Rate [Left Brachial] 79 Pulse Rate [Left Brachial] 68 Respiratory Rate 22 Respiratory Rate 21 Blood Pressure [Left Arm] 168/94 Blood Pressure [Left Arm] 149/92 O2 Sat by Pulse Oximetry 93 O2 Sat by Pulse Oximetry 96 Oriented: Normal Eyes: Normal Ear: Normal Nose: Normal Respiratory: Clear Throughout Cardiovascular: Edema (trace to 1+ LE edema b/l ) Auscultation: Bowel Sounds: Normal Palpation: Normal Tenderness: Normal Skin: Normal Musculoskeletal: Back:Paraspinous (cervical tenderness) and Motor Deficit (Cervical: limited extension, flexion and rotation Shoulder: limited external/internal rotation, abduction and adduction 90 degrees. Partial fist. shipping and receiving assistant strength intact. ) Psychiatric: Normal Mood Description: Calm Affect: Normal Speech Pattern: Clear and Appropriate
--- NOTE | 2023-08-10 14:10 | DR.H&P ---
H&P History & Physical for Day of: H&P Date: 08/10/23 Chief Complaint Chief Complaint: syncopal episodes, b/l upper extremity weakness Allergies Allergies Allergy/AdvReac Type Severity Reaction Status Date / Time No Known Drug Allergies Allergy Verified 08/17/18 18:36 History of Present Illness History of Present Illness: Mr Buck is a 48y/o male with a PMH of JOVANNY, non- compliant with CPAP, HTN, chronic neck/back pain and tobacco user presented with near syncope episodes, dizziness and b/l arm weakness. He states his symptoms have been ongoing for 3 weeks or so. He did see his PCP and had cervical MRI done 3 days ago which showed cervical stenosis. He is supposed to see Neurology in [place]. He reports worsening arm weakness, numbness and tingling. He denies any trauma or fall that could have injured his neck. He states he is not able to use his hands due to numbness. He reports having chronic pain for years but noticed it getting worse. He states his posture was always stooped over but has gotten worse recently. Denies any urine or bowel incontinence. Denies any leg weakness. He feels dizzy when standing up but gets better as he starts walking. He reports having sinus congestion and pressure. He does feel better this morning. In the ER, patient did not have any dizzy spells or syncopal episodes. CXR showed cardiomegaly. UA was negative, UDS showed amphetamines, patient does take Adderall. Trop (-) Total CK 418 CRP 3.4 ESR 24 K 3.0. ABG did show hypoxia and hypercapnia. Patient was noted to be somnolent overnight and was placed on BiPAP. He is currently on room air. He also has some LE edema which has been present for the past few weeks. Patient was admitted for further management for syncope. Labs/imaging reviewed Plan: Admit patient to ICU for closer monitoring. Neuro checks. MRI-brain and CT-sinus pending. Will order echo and carotid US. Replace electrolytes prn. Repeat orthostatic vitals. Continue telemetry. Resume home medications. BiPAP prn. Will need to obtain records of recent cervical MRI. Monitor AM labs/imagin g. Time spent for clinical assessment, reviewing labs/imaging, physical exam, decision making and documentation greater than 45 mins. Past Medical History Past Medical History: Dyslipidemia and Hypertension Past Surgical History Surgical History: Ortho Surgery Family History Family Medical History: Diabetes Mellitus, Cancer and Hypertension Social History Does patient currently use any type of tobacco product: Yes Have you used tobacco products in the last 12 months: Yes Type of Tobacco Use: Cigarettes How many years tobacco product used: 10 Does any household member use tobacco: No Alcohol Use: None Drug Use: Prescription Drugs Medications Home Medications: Home Medications Medication Instructions Recorded Confirmed Type dextroamphetamine-amphetamine 20 20 mg PO BID 08/09/23 08/09/23 History mg tablet testosterone cypionate 200 mg/mL 200 mg IM MONTHLY 08/09/23 08/09/23 History intramuscular oil hydrochlorothiazide 25 mg tablet 25 mg PO DAILY 08/10/23 08/10/23 History losartan 100 mg tablet 100 mg PO DAILY 08/10/23 08/10/23 History Labs 08/10/23 04:11 08/10/23 04:11 Labs: Laboratory WBC 5.3 X10^3/uL (3.6-10.0) 08/10/23 04:11 RBC 5.42 X10^6/uL (4.7-6.0) 08/10/23 04:11 Hgb 13.5 g/dL (13.5-18.0) 08/10/23 04:11 Hct 43.3 % (42.0-54.0) 08/10/23 04:11 MCV 79.9 fL (80.0-100.0) L 08/10/23 04:11 MCH 24.9 pg (27.0-34.0) L 08/10/23 04:11 MCHC 31.2 g/dL (33.0-35.0) L 08/10/23 04:11 RDW 16.1 % (11.6-16.5) 08/10/23 04:11 Plt Count 218 X10^3/uL (150.0-450.0) 08/10/23 04:11 MPV 9.1 fL (7.4-11.0) 08/10/23 04:11 Neut % (Auto) 60.1 % (42.0-75.0) 08/10/23 04:11 Lymph % (Auto) 21.8 % (21.0-51.0) 08/10/23 04:11 Cooper % (Auto) 10.7 % (0.0-13.0) 08/10/23 04:11 Eos % (Auto) 6.4 % (0.9-2.9) H 08/10/23 04:11 Baso % (Auto) 1.0 % (0.2-1.0) 08/10/23 04:11 Neut # (Auto) 3.2 x10^3/uL (2.2-4.8) 08/10/23 04:11 Lymph # (Auto) 1.2 X10^3/uL (1.3-2.9) L 08/10/23 04:11 Cooper # (Auto) 0.6 x10^3/uL (0.3-0.8) 08/10/23 04:11 Eos # (Auto) 0.3 x10^3/uL (0.0-0.2) H 08/10/23 04:11 Baso # (Auto) 0.1 X10^3/uL (0.0-0.1) 08/10/23 04:11 Absolute Nucleated RBC 0.2 /100WBC 08/10/23 04:11 ESR 24 MM/HOUR (0-15) H 08/09/23 16:45 Sample Site Rrad 08/09/23 18:32 ABG pH 7.410 (7.35-7.45) 08/09/23 18:32 ABG pCO2 59.0 mmHg (35.0-45.0) H* 08/09/23 18:32 ABG pO2 59.0 mmHg (80.0-100.0) L 08/09/23 18:32 ABG HCO3 37.4 mmol/L (22-26) H* 08/09/23 18:32 ABG O2 Saturation 90.0 % (90-100) 08/09/23 18:32 ABG Base Excess 10.6 mmol/L (-2.0-2.0) H 08/09/23 18:32 Hector Test Pos 08/09/23 18:32 A-a Gradient 17.0 mmHg 08/09/23 18:32 FiO2 21.0 08/09/23 18:32 Blood Gas Comments Pt elodia well elj cdn 08/09/23 18:32 Sodium 141 mmol/L (136-145) 08/10/23 04:11 Corrected Sodium TNP 08/10/23 04:11 Potassium 3.0 mmol/L (3.5-5.1) L 08/10/23 04:11 Chloride 100 mmol/L (98-107) 08/10/23 04:11 Carbon Dioxide 37.3 mmol/L (21-32) H 08/10/23 04:11 BUN 12 mg/dL (7-18) 08/10/23 04:11 Creatinine 0.83 mg/dL (0.70-1.30) 08/10/23 04:11 Est GFR (MDRD) Af Amer > 60 (>60) 08/10/23 04:11 Est GFR (MDRD) Non-Af > 60 (>60) 08/10/23 04:11 Glucose 96 mg/dL (65-99) 08/10/23 04:11 Calcium 8.7 mg/dL (8.5-10.1) 08/10/23 04:11 Corrected Calcium 9.6 mg/dL (8.5-10.1) 08/10/23 04:11 Magnesium 2.3 mg/dL (2.0-2.9) 08/10/23 04:11 Ferritin 16 ng/mL (26-388) L 08/10/23 08:58 Total Bilirubin 0.40 mg/dL (0.2-1.0) 08/10/23 04:11 AST 37 Units/L (15-37) 08/10/23 04:11 ALT 58 Units/L (12-78) 08/10/23 04:11 Alkaline Phosphatase 77 Units/L (46-116) 08/10/23 04:11 Creatine Kinase 241 Units/L (39-308) 08/10/23 04:11 Troponin I High Sens 6.5 ng/L (4.0-60.0) 08/09/23 16:45 C-Reactive Protein 3.40 mg/L (0-3.0) H 08/09/23 16:45 Total Protein 6.5 g/dL (6.4-8.2) 08/10/23 04:11 Albumin 2.9 g/dL (3.4-5.0) L 08/10/23 04:11 Globulin 3.6 g/dL (2.5-4.5) 08/10/23 04:11 Albumin/Globulin Ratio 0.8 Ratio (1.1-2.1) L 08/10/23 04:11 TSH 3rd Generation 0.759 uIU/mL (0.358-3.74) 08/09/23 16:45 Specimen Type Clean catch urine 08/09/23 19: Urine Color Yellow (YELLOW) 08/09/23 19: Urine Appearance Clear (CLEAR) 08/09/23 19: Urine pH 7.0 (5.0 - 8.0) 08/09/23 19: Ur Specific [place] 1.015 (1.000-1.030) 08/09/23 19: Urine Protein 2+ (NEGATIVE) 08/09/23 19: Urine Glucose (UA) Negative (NEGATIVE) 08/09/23 19: Urine Ketones Negative (NEGATIVE) 08/09/23 19: Urine Blood Negative (NEGATIVE) 08/09/23 19: Urine Nitrite Negative (NEGATIVE) 08/09/23: Urine Bilirubin Negative (NEGATIVE) 08/09/23 19: Urine Urobilinogen Normal (NORMAL) 08/09/23 19: Ur Leukocyte Esterase Negative (NEGATIVE) 08/09/23 19: Urine RBC None seen /HPF (0-3) 08/09/23 19: Urine WBC None seen /HPF (0-5) 08/09/23 19: Ur Squamous Epith Cells Rare /HPF (NEGATIVE) 08/09/23 19: Urine Bacteria Negative /HPF (NEGATIVE) 08/09/23 19: Ur Culture Indicated? No/not indicated 08/09/23 19: Urine Opiates Screen Negative (NEG=<300) 08/09/23 19: Urine Methadone Screen Negative (NEG=<300) 08/09/23 19: Ur Barbiturates Screen Negative (NEG=<200) 08/09/23: Ur Phencyclidine Scrn Negative (NEG=<25) 08/09/23 19: Ur Amphetamines Screen Positive (NEG=<1000) 08/09/23: U Benzodiazepines Scrn Negative (NEG=<200) 08/09/23: Urine Cocaine Screen Negative (NEG=<300) 08/09/23: U Marijuana (THC) Screen Negative (NEG=<50) 08/09/23 19:21 Review of Systems Constitutional: Weakness Eyes: No Symptoms Reported ENT: Nose Congestion Respiratory: Shortness of Breath Cardiovascular: Edema Gastrointestinal: No Symptoms Reported Genitourinary: No Symptoms Reported Musculoskeletal: Hand Pain and Neck Pain Skin: No Symptoms Reported Neurological: Weakness Physical Exam Vital Signs: Vital Signs Temperature 98.0 F Temperature 97.8 F Pulse Rate [Left Brachial] 75 Pulse Rate [Left Brachial] 83 Pulse Rate [Left Brachial] 86 Pulse Rate [Left Brachial] 82 Pulse Rate [Left Brachial] 79 Respiratory Rate 22 Respiratory Rate 22 Blood Pressure [Left Arm] 144/91 Blood Pressure [Left Arm] 154/91 Blood Pressure [Left Arm] 159/95 Blood Pressure [Left Arm] 169/95 Blood Pressure [Left Arm] 168/94 O2 Sat by Pulse Oximetry 92 O2 Sat by Pulse Oximetry 93 Oriented: Normal Eyes: Normal Nose: Normal Throat: Normal Respiratory: Clear Throughout Cardiovascular: Edema ((trace to 1+ LE edema b/l )) Auscultation: Bowel Sounds: Normal Palpation: Normal Tenderness: Normal Skin: Decreased Turgur Musculoskeletal: Back:Paraspinous ((cervical tenderness) and Motor Deficit (Cervical: limited extension, flexion and rotation Shoulder: limited external/internal rotation, abduction and adduction 90 degrees. Partial fist. skin care therapist strength intact. LE ROM intact, no weakness noted) Psychiatric: Normal Mood Description: Calm Affect: Normal Speech Pattern: Clear and Appropriate Assessment/Plan (1) Recurrent syncope: Status: Acute (2) Bilateral arm weakness: Status: Acute (3) Cervical radiculopathy: Status: Acute (4) Respiratory failure with hypoxia and hypercapnia: Qualifiers: Chronicity: chronic Qualified Code(s): J96.11 - Chronic respiratory failure with hypoxia; J96.12 - Chronic respiratory failure with hypercapnia Status: Acute (5) HTN (hypertension): Qualifiers: Hypertension type: primary hypertension Qualified Code(s): I10 - Essential (primary) hypertension Status: Acute (6) Chronic neck pain: Status: Acute (7) Neuropathy: Status: Acute (8) JOVANNY (obstructive sleep apnea): Status: Acute Review H&P Reviewed: Yes Patient was examined?: Yes
--- NOTE | 2023-08-10 14:59 | CT ---
EXAM:CT sinuses without IV contrastHISTORY:Weakness, anemiaCOMPARISON:None.TECHNIQUE:Multiple axial images of the sinuses were obtained. Study is performed without IV contrast. Dose reduction techniques including Automated Exposure Control (AEC) and adjustment of mA and kV were utilized.FINDINGS:Prominent mucosal thickening is seen in the right maxillary sinus with moderate to prominent mucosal thickening in the left maxillary sinus and bilateral ethmoid air cells. Slightly less prominent mucosal thickening is seen in the frontal sinuses and sphenoid sinuses. There may be a small air-fluid level in the left maxillary sinus.The nasal septum is deviated to the left. Maxillary ostia are occluded due to mucosal thickening. There is mucosal thickening in the right nares. No bone expansion or destruction is seen.In the right inferior nasal meatus there is a hyperdense focus with probable peripheral calcifications. This may represent chronic proteinaceous fluid within a nemesio bullosum. The area measures 1.3 x 1.1 x 0.8 cm. A nasal polyp is another possibility. No antrochoanal polyps are seen.IMPRESSION:Prominent chronic sinusitis changes.1.3 cm hyperdense focus in the right inferior nasal meatus is probably proteinaceous fluid within a nemesio bullosum. It could possibly be a nasal polyp.THIS IS AN ELECTRONICALLY VERIFIED FINAL REPORT08/10/2023 2:56 PM - Electronically signed by Tito Victoria MD
[2023-08-10] MEDS: FLONASE NASAL SPRAY ENOSTRIL SCH (18:26)
[2023-08-10] MEDS: MUCINEX EXPECTORANT PO SCH (20:27)
[2023-08-11 04:59] LABS: BASOPHILS # (AUTO) 0.2 X10^3/uL (0.0-0.1); BASOPHILS % (AUTO) 2.9 % (0.2-1.0); EOSINOPHILS # (AUTO) 0.5 x10^3/uL (0.0-0.2); EOSINOPHILS % (AUTO) 6.5 % (0.9-2.9); HEMATOCRIT 42.8 % (42.0-54.0); HEMOGLOBIN 13.3 g/dL (13.5-18.0); LYMPHOCYTES % (AUTO) 13.6 % (21.0-51.0); MEAN CORPUSCULAR HGB CONC 31.1 g/dL (33.0-35.0); MEAN CORPUSCULAR VOLUME 80.4 fL (80.0-100.0); MEAN PLATELET VOLUME 9.3 fL (7.4-11.0); MONOCYTES # (AUTO) 0.7 x10^3/uL (0.3-0.8); MONOCYTES % (AUTO) 9.3 % (0.0-13.0); NEUTROPHILS # (AUTO) 4.8 x10^3/uL (2.2-4.8); NEUTROPHILS % (AUTO) 67.7 % (42.0-75.0); PLATELET COUNT 211 X10^3/uL (150.0-450.0); RED BLOOD COUNT 5.32 X10^6/uL (4.7-6.0); RED CELL DISTRIBUTION WIDTH 16.1 % (11.6-16.5); WHITE BLOOD COUNT 7.1 X10^3/uL (3.6-10.0)
[2023-08-11 05:14] LABS: ALANINE AMINOTRANSFERASE 53 Units/L (12-78); ALBUMIN 3.1 g/dL (3.4-5.0); ALKALINE PHOSPHATASE 76 Units/L (46-116); ASPARTATE AMINO TRANSFERASE 28 Units/L (15-37); BLOOD UREA NITROGEN 14 mg/dL (7-18); CALCIUM 8.8 mg/dL (8.5-10.1); CARBON DIOXIDE 39.7 mmol/L (21-32); CHLORIDE 100 mmol/L (98-107); COR CA(FOR HYPOALB) 9.5 mg/dL (8.5-10.1); CREATININE 0.77 mg/dL (0.70-1.30); GLUCOSE 82 mg/dL (65-99); POTASSIUM 3.8 mmol/L (3.5-5.1); SODIUM 141 mmol/L (136-145); TOTAL PROTEIN 6.7 g/dL (6.4-8.2); eGFR NON BLACK RACES > 60 (>60)
[2023-08-11] MEDS: CONSULT PHARMACY - POTASSIUM & MAGNESIUM XX SCH (07:17)
[2023-08-11] MEDS: MAG-OX TAB PO SCH (08:52)
[2023-08-11] MEDS: K-DUR TAB 20 MEQ PO SCH (08:54)
[2023-08-11 09:35] VITALS: BP 154/86; PULSE 89; RESP 20; TEMP 97.4; O2SAT 96
[2023-08-11] MEDS: AUGMENTIN 875 MG/125 MG TAB PO SCH (10:25)
--- NOTE | 2023-08-16 10:06 | W.DIS.FURT ---
Summary of Discharge Discharge Summary of Date Date of Exam: 08/11/23 Admission Date Date of Admission: 08/09/23 Admission Diagnosis Patient Problems (Updated 08/10/23 @ 14:09 by Susu Moulton) Recurrent syncope (Acute) R55 Bilateral arm weakness (Acute) R29.898 Hospital Course: Pt is a 48y/o male with a PMH of JOVANNY, non-compliant with CPAP, HTN, chronic neck/back pain and tobacco user presented with near syncope episodes, dizziness and b/l arm weakness. He states his symptoms have been ongoing for 3 weeks or so. He did see his PCP and had cervical MRI done 3 days ago which showed cervical stenosis. He is supposed to see Neurology in [place]. His primary admission is for syncope. CT of the head did reveal chronic sinusitis. MRI was obtained of the brain that was negative for any acute intracranial findings. Carotid ultrasound was also negative for any significant stenosis. He has had a echo that shows an ejection fraction of 57%. Orthostatics were negative. Patient's symptoms of syncope resolved on its own. He did not have any episodes while inpatient. Patient will follow-up with his neurologist for his progressive weakening of upper extremities. Augmentin sent in for sinusitis. Instructed to follow-up with his PCP in 1 week and neurology outpatient. Vital Signs: Vital Signs (72 hours) 08/09/23 15:50 08/09/23 16:39 08/09/23 16:45 Temperature 98.2 F Pulse Rate 92 H 81 86 Pulse Rate [Left Brachial] Pulse Rate [Left] Pulse Rate [Lying] Pulse Rate [Sitting] Pulse Rate [Standing] Respiratory Rate 20 27 H 29 H Blood Pressure 145/81 Blood Pressure [Left Arm] Blood Pressure [Lying] Blood Pressure [Sitting] Blood Pressure [Standing] O2 Sat by Pulse Oximetry 97 92 L 96 Oxygen Delivery Method Room Air FIO2% 08/09/23 17:00 08/09/23 17:00 08/09/23 17:15 Temperature Pulse Rate 84 90 Pulse Rate [Left Brachial] Pulse Rate [Left] Pulse Rate [Lying] Pulse Rate [Sitting] Pulse Rate [Standing] Respiratory Rate 23 29 H Blood Pressure 147/93 Blood Pressure [Left Arm] Blood Pressure [Lying] Blood Pressure [Sitting] Blood Pressure [Standing] O2 Sat by Pulse Oximetry 95 97 Oxygen Delivery Method FIO2% 08/09/23 17:30 08/09/23 17:30 08/09/23 18:26 Temperature Pulse Rate 83 Pulse Rate [Left Brachial] Pulse Rate [Left] Pulse Rate [Lying] 90 Pulse Rate [Sitting] 92 H Pulse Rate [Standing] 88 Respiratory Rate 25 H Blood Pressure 155/97 Blood Pressure [Left Arm] Blood Pressure [Lying] 175/101 Blood Pressure [Sitting] 171/101 Blood Pressure [Standing] 164/93 O2 Sat by Pulse Oximetry 96 Oxygen Delivery Method FIO2% 08/09/23 17:45 08/09/23 18:00 08/09/23 18:00 Temperature Pulse Rate 82 85 Pulse Rate [Left Brachial] Pulse Rate [Left] Pulse Rate [Lying] Pulse Rate [Sitting] Pulse Rate [Standing] Respiratory Rate 26 H 25 H Blood Pressure 180/108 Blood Pressure [Left Arm] Blood Pressure [Lying] Blood Pressure [Sitting] Blood Pressure [Standing] O2 Sat by Pulse Oximetry 96 89 L Oxygen Delivery Method FIO2% 08/09/23 18:15 08/09/23 18:19 08/09/23 18:19 Temperature Pulse Rate 82 84 Pulse Rate [Left Brachial] Pulse Rate [Left] Pulse Rate [Lying] Pulse Rate [Sitting] Pulse Rate [Standing] Respiratory Rate 28 H 26 H Blood Pressure 175/101 Blood Pressure [Left Arm] Blood Pressure [Lying] Blood Pressure [Sitting] Blood Pressure [Standing] O2 Sat by Pulse Oximetry 89 L 93 L Oxygen Delivery Method FIO2% 08/09/23 18:21 08/09/23 18:21 08/09/23 18:22 Temperature Pulse Rate 90 Pulse Rate [Left Brachial] Pulse Rate [Left] Pulse Rate [Lying] Pulse Rate [Sitting] Pulse Rate [Standing] Respiratory Rate 25 H Blood Pressure 171/101 164/93 Blood Pressure [Left Arm] Blood Pressure [Lying] Blood Pressure [Sitting] Blood Pressure [Standing] O2 Sat by Pulse Oximetry 96 Oxygen Delivery Method FIO2% 08/09/23 18:22 08/09/23 18:30 08/09/23 18:30 Temperature Pulse Rate 89 83 Pulse Rate [Left Brachial] Pulse Rate [Left] Pulse Rate [Lying] Pulse Rate [Sitting] Pulse Rate [Standing] Respiratory Rate 28 H 31 H Blood Pressure 168/86 Blood Pressure [Left Arm] Blood Pressure [Lying] Blood Pressure [Sitting] Blood Pressure [Standing] O2 Sat by Pulse Oximetry 96 97 Oxygen Delivery Method FIO2% 08/09/23 18:45 08/09/23 18:59 08/09/23 19:00 Temperature Pulse Rate 89 100 H Pulse Rate [Left Brachial] Pulse Rate [Left] Pulse Rate [Lying] Pulse Rate [Sitting] Pulse Rate [Standing] Respiratory Rate 35 H 34 H Blood Pressure 142/88 Blood Pressure [Left Arm] Blood Pressure [Lying] Blood Pressure [Sitting] Blood Pressure [Standing] O2 Sat by Pulse Oximetry 94 L Oxygen Delivery Method FIO2% 08/09/23 19:58 08/09/23 19:00 08/09/23 19:15 Temperature Pulse Rate 95 H 90 Pulse Rate [Left Brachial] Pulse Rate [Left] Pulse Rate [Lying] Pulse Rate [Sitting] Pulse Rate [Standing] Respiratory Rate 26 H 29 H Blood Pressure Blood Pressure [Left Arm] Blood Pressure [Lying] Blood Pressure [Sitting] Blood Pressure [Standing] O2 Sat by Pulse Oximetry Oxygen Delivery Method FIO2% 21 08/09/23 19:30 08/09/23 19:31 08/09/23 19:31 Temperature Pulse Rate 92 H 91 H Pulse Rate [Left Brachial] Pulse Rate [Left] Pulse Rate [Lying] Pulse Rate [Sitting] Pulse Rate [Standing] Respiratory Rate 30 H 29 H Blood Pressure 156/100 Blood Pressure [Left Arm] Blood Pressure [Lying] Blood Pressure [Sitting] Blood Pressure [Standing] O2 Sat by Pulse Oximetry 94 L 94 L Oxygen Delivery Method FIO2% 08/09/23 19:45 08/09/23 20:00 08/09/23 20:00 Temperature Pulse Rate 89 83 Pulse Rate [Left Brachial] Pulse Rate [Left] Pulse Rate [Lying] Pulse Rate [Sitting] Pulse Rate [Standing] Respiratory Rate 26 H 24 Blood Pressure 132/77 Blood Pressure [Left Arm] Blood Pressure [Lying] Blood Pressure [Sitting] Blood Pressure [Standing] O2 Sat by Pulse Oximetry 94 L 96 Oxygen Delivery Method FIO2% 08/09/23 20:15 08/09/23 20:51 08/09/23 21:20 Temperature 98.0 F Pulse Rate 81 Pulse Rate [Left Brachial] 75 83 Pulse Rate [Left] Pulse Rate [Lying] Pulse Rate [Sitting] Pulse Rate [Standing] Respiratory Rate 22 18 21 Blood Pressure Blood Pressure [Left Arm] 138/81 156/95 Blood Pressure [Lying] Blood Pressure [Sitting] Blood Pressure [Standing] O2 Sat by Pulse Oximetry 95 90 L 96 Oxygen Delivery Method Bi-pap Bi-pap FIO2% 21 08/09/23 21:20 08/09/23 22:00 08/10/23 00:00 Temperature 98.0 F Pulse Rate Pulse Rate [Left Brachial] 72 65 Pulse Rate [Left] Pulse Rate [Lying] Pulse Rate [Sitting] Pulse Rate [Standing] Respiratory Rate 24 24 Blood Pressure Blood Pressure [Left Arm] 142/86 124/76 Blood Pressure [Lying] Blood Pressure [Sitting] Blood Pressure [Standing] O2 Sat by Pulse Oximetry 89 L 91 L Oxygen Delivery Method Room Air Bi-pap Bi-pap FIO2% 21 08/10/23 04:00 08/10/23 08:00 08/10/23 07:00 Temperature 97.7 F 97.8 F Pulse Rate Pulse Rate [Left Brachial] 68 79 Pulse Rate [Left] Pulse Rate [Lying] Pulse Rate [Sitting] Pulse Rate [Standing] Respiratory Rate 21 22 Blood Pressure Blood Pressure [Left Arm] 149/92 168/94 Blood Pressure [Lying] Blood Pressure [Sitting] Blood Pressure [Standing] O2 Sat by Pulse Oximetry 96 93 L Oxygen Delivery Method Bi-pap Room Air Room Air FIO2% 21 08/10/23 10:45 08/10/23 10:46 08/10/23 10:46 Temperature Pulse Rate Pulse Rate [Left Brachial] 82 86 83 Pulse Rate [Left] Pulse Rate [Lying] Pulse Rate [Sitting] Pulse Rate [Standing] Respiratory Rate Blood Pressure Blood Pressure [Left Arm] 169/95 159/95 154/91 Blood Pressure [Lying] Blood Pressure [Sitting] Blood Pressure [Standing] O2 Sat by Pulse Oximetry Oxygen Delivery Method FIO2% 08/10/23 12:00 08/10/23 16:00 08/10/23 18:17 Temperature 98.0 F 98.6 F Pulse Rate Pulse Rate [Left Brachial] 75 80 Pulse Rate [Left] Pulse Rate [Lying] Pulse Rate [Sitting] Pulse Rate [Standing] Respiratory Rate 22 18 Blood Pressure Blood Pressure [Left Arm] 144/91 156/91 Blood Pressure [Lying] Blood Pressure [Sitting] Blood Pressure [Standing] O2 Sat by Pulse Oximetry 92 L 94 L Oxygen Delivery Method Room Air Room Air Room Air FIO2% 08/10/23 20:00 08/10/23 20:00 08/10/23 23:50 Temperature 97.8 F Pulse Rate Pulse Rate [Left Brachial] 91 H Pulse Rate [Left] Pulse Rate [Lying] Pulse Rate [Sitting] Pulse Rate [Standing] Respiratory Rate 18 Blood Pressure Blood Pressure [Left Arm] 170/94 Blood Pressure [Lying] Blood Pressure [Sitting] Blood Pressure [Standing] O2 Sat by Pulse Oximetry 96 Oxygen Delivery Method Room Air Room Air Bi-pap FIO2% 28 08/10/23 23:50 08/11/23 00:00 08/11/23 04:00 Temperature 98.2 F 98.1 F Pulse Rate Pulse Rate [Left Brachial] Pulse Rate [Left] 71 60 Pulse Rate [Lying] Pulse Rate [Sitting] Pulse Rate [Standing] Respiratory Rate 20 21 Blood Pressure Blood Pressure [Left Arm] 170/92 161/93 Blood Pressure [Lying] Blood Pressure [Sitting] Blood Pressure [Standing] O2 Sat by Pulse Oximetry 98 97 Oxygen Delivery Method CPAP Bi-pap FIO2% 28 28 28 08/11/23 08:00 Temperature 97.4 F L Pulse Rate Pulse Rate [Left Brachial] Pulse Rate [Left] 89 Pulse Rate [Lying] Pulse Rate [Sitting] Pulse Rate [Standing] Respiratory Rate 20 Blood Pressure Blood Pressure [Left Arm] 154/86 Blood Pressure [Lying] Blood Pressure [Sitting] Blood Pressure [Standing] O2 Sat by Pulse Oximetry 96 Oxygen Delivery Method Room Air FIO2% Labs: Laboratory Last Values WBC 7.1 X10^3/uL (3.6-10.0) 08/11/23 04:10 RBC 5.32 X10^6/uL (4.7-6.0) 08/11/23 04:10 Hgb 13.3 g/dL (13.5-18.0) L 08/11/23 04:10 Hct 42.8 % (42.0-54.0) 08/11/23 04:10 MCV 80.4 fL (80.0-100.0) 08/11/23 04:10 MCH 25.0 pg (27.0-34.0) L 08/11/23 04:10 MCHC 31.1 g/dL (33.0-35.0) L 08/11/23 04:10 RDW 16.1 % (11.6-16.5) 08/11/23 04:10 Plt Count 211 X10^3/uL (150.0-450.0) 08/11/23 04:10 MPV 9.3 fL (7.4-11.0) 08/11/23 04:10 Neut % (Auto) 67.7 % (42.0-75.0) 08/11/23 04:10 Lymph % (Auto) 13.6 % (21.0-51.0) L 08/11/23 04:10 Yates % (Auto) 9.3 % (0.0-13.0) 08/11/23 04:10 Eos % (Auto) 6.5 % (0.9-2.9) H 08/11/23 04:10 Baso % (Auto) 2.9 % (0.2-1.0) H 08/11/23 04:10 Neut # (Auto) 4.8 x10^3/uL (2.2-4.8) 08/11/23 04:10 Lymph # (Auto) 1.0 X10^3/uL (1.3-2.9) L 08/11/23 04:10 Yates # (Auto) 0.7 x10^3/uL (0.3-0.8) 08/11/23 04:10 Eos # (Auto) 0.5 x10^3/uL (0.0-0.2) H 08/11/23 04:10 Baso # (Auto) 0.2 X10^3/uL (0.0-0.1) H 08/11/23 04:10 Absolute Nucleated RBC 0.0 /100WBC 08/11/23 04:10 ESR 24 MM/HOUR (0-15) H 08/09/23 16:45 Sample Site Rrad 08/09/23 18:32 ABG pH 7.410 (7.35-7.45) 08/09/23 18:32 ABG pCO2 59.0 mmHg (35.0-45.0) H* 08/09/23 18:32 ABG pO2 59.0 mmHg (80.0-100.0) L 08/09/23 18:32 ABG HCO3 37.4 mmol/L (22-26) H* 08/09/23 18:32 ABG O2 Saturation 90.0 % (90-100) 08/09/23 18:32 ABG Base Excess 10.6 mmol/L (-2.0-2.0) H 08/09/23 18:32 Hector Test Pos 08/09/23 18:32 A-a Gradient 17.0 mmHg 08/09/23 18:32 FiO2 21.0 08/09/23 18:32 Blood Gas Comments Pt elodia well elj cdn 08/09/23 18:32 Sodium 141 mmol/L (136-145) 08/11/23 04:10 Corrected Sodium TNP 08/11/23 04:10 Potassium 3.8 mmol/L (3.5-5.1) 08/11/23 04:10 Chloride 100 mmol/L (98-107) 08/11/23 04:10 Carbon Dioxide 39.7 mmol/L (21-32) H 08/11/23 04:10 BUN 14 mg/dL (7-18) 08/11/23 04:10 Creatinine 0.77 mg/dL (0.70-1.30) 08/11/23 04:10 Est GFR (MDRD) Af Amer > 60 (>60) 08/11/23 04:10 Est GFR (MDRD) Non-Af > 60 (>60) 08/11/23 04:10 Glucose 82 mg/dL (65-99) 08/11/23 04:10 Calcium 8.8 mg/dL (8.5-10.1) 08/11/23 04:10 Corrected Calcium 9.5 mg/dL (8.5-10.1) 08/11/23 04:10 Magnesium 1.9 mg/dL (2.0-2.9) L 08/11/23 04:10 Ferritin 16 ng/mL (26-388) L 08/10/23 08:58 Total Bilirubin 0.40 mg/dL (0.2-1.0) 08/11/23 04:10 AST 28 Units/L (15-37) 08/11/23 04:10 ALT 53 Units/L (12-78) 08/11/23 04:10 Alkaline Phosphatase 76 Units/L (46-116) 08/11/23 04:10 Creatine Kinase 241 Units/L (39-308) 08/10/23 04:11 Troponin I High Sens 6.5 ng/L (4.0-60.0) 08/09/23 16:45 C-Reactive Protein 3.40 mg/L (0-3.0) H 08/09/23 16:45 Total Protein 6.7 g/dL (6.4-8.2) 08/11/23 04:10 Albumin 3.1 g/dL (3.4-5.0) L 08/11/23 04:10 Globulin 3.6 g/dL (2.5-4.5) 08/11/23 04:10 Albumin/Globulin Ratio 0.9 Ratio (1.1-2.1) L 08/11/23 04:10 TSH 3rd Generation 0.759 uIU/mL (0.358-3.74) 08/09/23 16:45 Specimen Type Clean catch urine 08/09/23 19: Urine Color Yellow (YELLOW) 08/09/23 19: Urine Appearance Clear (CLEAR) 08/09/23 19: Urine pH 7.0 (5.0 - 8.0) 08/09/23 19: Ur Specific [place] 1.015 (1.000-1.030) 08/09/23 19: Urine Protein 2+ (NEGATIVE) 08/09/23 19: Urine Glucose (UA) Negative (NEGATIVE) 08/09/23 19: Urine Ketones Negative (NEGATIVE) 08/09/23 19: Urine Blood Negative (NEGATIVE) 08/09/23 19: Urine Nitrite Negative (NEGATIVE) 08/09/23 19: Urine Bilirubin Negative (NEGATIVE) 08/09/23 19: Urine Urobilinogen Normal (NORMAL) 08/09/23 19: Ur Leukocyte Esterase Negative (NEGATIVE) 08/09/23 19: Urine RBC None seen /HPF (0-3) 08/09/23 19: Urine WBC None seen /HPF (0-5) 08/09/23 19: Ur Squamous Epith Cells Rare /HPF (NEGATIVE) 08/09/23 19: Urine Bacteria Negative /HPF (NEGATIVE) 08/09/23 19: Ur Culture Indicated? No/not indicated 08/09/23 19: Urine Opiates Screen Negative (NEG=<300) 08/09/23 19: Urine Methadone Screen Negative (NEG=<300) 08/09/23 19: Ur Barbiturates Screen Negative (NEG=<200) 08/09/23 19:21 Ur Phencyclidine Scrn Negative (NEG=<25) 08/09/23 19:21 Ur Amphetamines Screen Positive (NEG=<1000) 08/09/23 19:21 U Benzodiazepines Scrn Negative (NEG=<200) 08/09/23 19:21 Urine Cocaine Screen Negative (NEG=<300) 08/09/23 19:21 U Marijuana (THC) Screen Negative (NEG=<50) 08/09/23 19:21 Reason For Visit: RECURRENT SYNCOPE, BILATERAL UPPER EXTREMITY Discharge Date Discharge Date: 08/11/23 Discharge Diagnosis All Active Problems (Updated 08/10/23 @ 14:09 by Susu Moulton) JOVANNY (obstructive sleep apnea) (Acute) Respiratory failure with hypoxia and hypercapnia (Acute) Neuropathy (Acute) Cervical radiculopathy (Acute) Chronic neck pain (Acute) HTN (hypertension) (Acute) Laceration of index finger (Acute) Recurrent syncope (Acute) Bilateral arm weakness (Acute) Plan of Treatment: Continue with present treatment and follow up plan. Pt is to keep follow up appointment as instructed and take medications as ordered. Discharge Medications Discharge Medications: No Known Drug Allergies Allergy (Verified 08/11/23 00:37) CONTINUE taking the following medications dextroamphetamine-amphetamine 20 mg tablet 20 mg PO BID 08/09/23 [History] testosterone cypionate 200 mg/mL intramuscular oil 200 mg IM MONTHLY 08/09/23 [History] hydrochlorothiazide 25 mg tablet 25 mg PO DAILY 08/10/23 [History] losartan 100 mg tablet 100 mg PO DAILY 08/10/23 [History] Discharge Plan Discharge Plan Hospital Course: Pt is a 48y/o male with a PMH of JOVANNY, non-compliant with CPAP, HTN, chronic neck/back pain and tobacco user presented with near syncope episodes, dizziness and b/l arm weakness. He states his symptoms have been ongoing for 3 weeks or so. He did see his PCP and had cervical MRI done 3 days ago which showed cervical stenosis. He is supposed to see Neurology in [place]. His primary admission is for syncope. CT of the head did reveal chronic sinusitis. MRI was obtained of the brain that was negative for any acute intracranial findings. Carotid ultrasound was also negative for any significant stenosis. He has had a echo that shows an ejection fraction of 57%. Orthostatics were negative. Patient's symptoms of syncope resolved on its own. He did not have any episodes while inpatient. Patient will follow-up with his neurologist for his progressive weakening of upper extremities. Augmentin sent in for sinusitis. Instructed to follow-up with his PCP in 1 week and neurology outpatient. Patient Disposition: 01 HOME, SELF-CARE Condition: Stable Health Concerns: Post Hospitalization: new medications and changes needed to prevent readmission or further decline. Pt educated and given instructions on all concerns. Care Plan Goals: Problem: Activity Intolerance Goal: Increased tolerance to activity Instructions: Follow provided instructions. Follow up with primary physician as directed. Contact primary care physician or report to the closest Emergency Room if condition worsens. Plan of Treatment: Continue with present treatment and follow up plan. Pt is to keep follow up appointment as instructed and take medications as ordered. Prescriptions: New amoxicillin-pot clavulanate 875-125 mg Tablet 1 tab PO BID 10 Days Qty: 20 0RF Continued dextroamphetamine-amphetamine 20 mg tablet 20 mg PO BID testosterone cypionate 200 mg/mL oil 200 mg IM MONTHLY hydrochlorothiazide 25 mg Tablet 25 mg PO DAILY losartan 100 mg Tablet 100 mg PO DAILY Follow ups/Referrals Follow ups/Referrals: TORSTEN Cooper [Other] (Follow up as needed.) MIGUEL CABRERA [REFERRING] - (Office will call with appointment.) Instructions Instructions: Fall Prevention in the Home, Adult, [id number], Sinusitis, Adult, Near-Syncope, [id number], Sinus Pain, [id number], Syncope, Adult, [id number] Stand Alone Forms: Post Hospital Follow Up Care
== END 2023-08-11 11:45 | disposition home or self-care (01) | DRG 312 ==
LOC: ER 15:36 → ICU 20:14
PROVIDERS: ADMIT Internal Medicine; ATTEND Internal Medicine